=== PATIENT | male | born 1960 | race Caucasian/White ===

== ENCOUNTER 2021-01-31 20:11 | Emergency (ER) | payer MEDICARE, MEDICAID ==
[~2021-01-31] VITALS: Ht 172.7 cm; Wt 82.6 kg
--- NOTE | 2021-01-31 20:24 | NUR ---
BIBPA FROM SNF FOR C/O ALTERED MENTAL STATUS. PT ALERT AND RESPONSIVE W/ EXPRESSIVE DYSPHAGIA DUE TO HX OF CVA. NO FALL REPORTED. NO S/S OF PAIN, -N/V. ASSISTED TO BED 12 ER. WAS PLACED ON A MONITOR. VSS. PATRICIA CONT TO MONITOR
--- NOTE | 2021-01-31 21:32 | NUR ---
[facility] ETA: 0000
[2021-01-31 22:00] VITALS: BP 107/59
--- NOTE | 2021-01-31 22:59 | NUR ---
Patient is resting comfortably in bed with eyes closed. Easily aroused. VSS
--- NOTE | 2021-02-01 00:38 | NUR ---
PT WAS TRANSFERRED BACK TO THE FACILITY VIA GURNEY IN STABLE CONDITION
== END 2021-02-01 00:42 ==
LOC: ER 20:26
DX: R41.82 Altered mental status, unspecified (principal); I10 Essential (primary) hypertension; I48.91 Unspecified atrial fibrillation; J44.9 Chronic obstructive pulmonary disease, unspecified; Z86.73 Personal history of transient ischemic attack (TIA), and cerebral infarction without residual deficits
CPT/HCPCS: 70450-TC; 87081-TC